=== PATIENT | male | born 1985 | race Caucasian/White ===

== ENCOUNTER 2017-04-02 20:04 | Emergency (ER) | payer OTHER ==
--- NOTE | 2017-04-02 21:11 | ED ---
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 Patient reports that 2 days ago he was exposed to some type of substance while at a crime scene. Patient reports it seemed to be like pills and he put them in a baggy. He reports that the bag absence started to his arm. He reports a one-day afterwards he started to have some red areas and. His over his left wrist. Denies any other new exposures. Patient states it seems to be somewhat. It, he put hydrocortisone on it. He reports that his occupation required him to be seen. - Related Data Home Medications Medication Instructions Recorded Confirmed Albuterol Inhaler [Ventolin Hfa 1 - 2 puff INHALATION RT-Q6H PRN 07/21/14 Inhaler] Albuterol Nebulized [Ventolin 2.5 mg INHALATION RT-Q6H PRN 04/02/17 04/02/17 Nebulized] Hydrocortisone Cream 1 applic TOPICAL TID PRN 04/02/17 04/02/17 [Hydrocortisone 1% Cream] Multivitamins, Thera [Multivitamin 1 tab PO DAILY 04/02/17 04/02/17 (formulary)] PARoxetine HCL [Paxil] 15 mg PO DAILY 04/02/17 04/02/17 Allergies Allergy/AdvReac Type Severity Reaction Status Date / Time No Known Allergies Allergy Verified 04/02/17 20:19 Review of Systems ROS Statement: Those systems with pertinent positive or pertinent negative responses have been documented in the HPI. ROS Other: All systems not noted in ROS Statement are negative. 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 Patient does appear to be in any acute distress. Limitations: no limitations General appearance: alert, in no apparent distress Head exam: Present: atraumatic, normocephalic, normal inspection Eye exam: Present: normal appearance, PERRL, EOMI. Absent: scleral icterus, conjunctival injection, periorbital swelling ENT exam: Present: normal exam, mucous membranes moist Neck exam: Present: normal inspection. Absent: tenderness, meningismus, lymphadenopathy Respiratory exam: Present: normal lung sounds bilaterally. Absent: respiratory distress, wheezes, rales, rhonchi, stridor Cardiovascular Exam: Present: regular rate, normal rhythm, normal heart sounds. Absent: systolic murmur, diastolic murmur, rubs, gallop, clicks Neurological exam: Present: alert, oriented X3, CN II-XII intact Psychiatric exam: Present: normal affect, normal mood Skin exam: Present: warm, dry, intact, normal color, erythema (Small area of erythematous papules over his left wrist. It is approximately 10 papules. No significant excoriations or swelling or drainage noted.). Absent: rash Course Vital Signs 04/02/17 04/02/17 20:08 21:15 Pulse Rate 84 75 Respiratory 20 18 Rate Blood Pressure 138/85 139/88 O2 Sat by Pulse 97 98 Oximetry Medical Decision Making - Medical Decision Making Three-way male presented emergency department with a rash on his right wrist after exposure from a substance follow work. 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 Patient reported somewhat pruritic. Patient does have multiple small papules over his wrist, no other areas of lesions. Patient lesions do not appear to be similar to scabies. This time patient will be advised to continue to use hydrocortisone cream, discuss if he gets worse or spreads that he needs come back for further evaluation. Patient was given a dressing over the wrist. Discussed wearing a watch over his wrist as well as second be causing some more irritation. Family understands treatment plan will comply. Return parameters were discussed. Disposition Clinical Impression: Rash and nonspecific skin eruption Disposition: HOME SELF-CARE Condition: Good Instructions: Acute Rash (ED), Dermatitis (ED) Additional Instructions: Ice to apply hydrocortisone and antibiotic cream. Keep the area covered. Monitor for any increased redness, swelling or drainage. Return to emergency department if any of these alarming signs symptoms occur. Referrals: Demar Combs MD [Primary Care Provider] - 1-2 days Time of Disposition: 21:11
[2017-04-02 21:16] VITALS: BP 139/88; PULSE 75; RESP 18
== END 2017-04-02 21:23 | disposition home or self-care (01) ==
LOC: EC 20:04
DX: R21 Rash and other nonspecific skin eruption (principal); F32.9 Major depressive disorder, single episode, unspecified; Z79.899 Other long term (current) drug therapy
CPT/HCPCS: 99283

== ENCOUNTER 2017-04-09 05:13 | Emergency (ER) | payer BC, OTHER ==
[2017-04-09] MEDS ORDERED: SODIUM CHLORIDE 0.9% 1,000 ML IV ONE (05:23)
--- NOTE | 2017-04-09 05:29 | ED ---
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 He felt dizzy. These have PVCs roll 4:06 AM this morning it lasted for about 20-25 minutes. He states he had a racing heart along with dizziness. Patient states he feels back to normal at this time. He does state he got out of his car and did fill better than had recurrent symptoms. He fell he did call an ambulance his blood sugar was found to be adequate blood pressure was somewhat elevated however. He has any recent illnesses fevers chills nausea vomiting sweats he did have about a week ago a reaction to his left wrist to some medication was disposing of. Family history of heart attack at that was a heavy smoker he had a heart attack in his 40s. No thyroid condition at this time the is known. No neurological conditions know early strokes. Of note patient does have a new baby at home and is paralyzed up and getting much sleep. Tonight he had coffee without much else for fluid intake - Related Data Home Medications Medication Instructions Recorded Confirmed Albuterol Inhaler [Ventolin Hfa 1 - 2 puff INHALATION RT-Q6H PRN 07/21/14 Inhaler] Albuterol Nebulized [Ventolin 2.5 mg INHALATION RT-Q6H PRN 04/02/17 04/02/17 Nebulized] Hydrocortisone Cream 1 applic TOPICAL TID PRN 04/02/17 04/02/17 [Hydrocortisone 1% Cream] Multivitamins, Thera [Multivitamin 1 tab PO DAILY 04/02/17 04/02/17 (formulary)] PARoxetine HCL [Paxil] 15 mg PO DAILY 04/02/17 04/02/17 Allergies Allergy/AdvReac Type Severity Reaction Status Date / Time No Known Allergies Allergy Verified 04/09/17 05:24 Review of Systems ROS Statement: Those systems with pertinent positive or pertinent negative responses have been documented in the HPI. ROS Other: All systems not noted in ROS Statement are negative. Past Medical History Past Medical History: Asthma History of Any Multi-Drug Resistant Organisms: None Reported Past Surgical History: No Surgical Hx Reported Additional Past Surgical History / Comment(s): wisdom teeth Past Psychological History: Anxiety, Depression Smoking Status: Never smoker Past Alcohol Use History: Occasional Past Drug Use History: None Reported General Exam - General Exam Comments Initial Comments: This is a well-developed well-nourished awake alert oriented 4 male Limitations: no limitations General appearance: alert, in no apparent distress Head exam: Present: atraumatic, normocephalic, normal inspection Eye exam: Present: normal appearance, PERRL, EOMI. Absent: scleral icterus, conjunctival injection, periorbital swelling ENT exam: Present: normal exam, mucous membranes moist Neck exam: Present: normal inspection. Absent: tenderness, meningismus, lymphadenopathy Respiratory exam: Present: normal lung sounds bilaterally. Absent: respiratory distress, wheezes, rales, rhonchi, stridor Cardiovascular Exam: Present: regular rate, normal rhythm, normal heart sounds. Absent: systolic murmur, diastolic murmur, rubs, gallop, clicks GI/Abdominal exam: Present: soft, normal bowel sounds. Absent: distended, tenderness, guarding, rebound, rigid Extremities exam: Present: normal inspection, full ROM, normal capillary refill. Absent: tenderness, pedal edema, joint swelling, calf tenderness Back exam: Present: normal inspection Neurological exam: Present: alert, oriented X3, CN II-XII intact Psychiatric exam: Present: normal affect, normal mood Skin exam: Present: warm, dry, intact, normal color. Absent: rash Course Vital Signs 04/09/17 04/09/17 05:15 06:16 Temperature 97.2 F L Pulse Rate 81 72 Respiratory 18 18 Rate Blood Pressure 170/97 151/66 O2 Sat by Pulse 98 98 Oximetry - Reevaluation(s) Reevaluation #1: 04/09/17 06:47 Patient is asymptomatic on reevaluation EKG Findings - EKG Results: EKG: interpreted by ERMDarion, WNL, sinus rhythm, normal axis, normal QRS, normal ST/ T, no acute changes (Sinus rhythm rate 74 UT interval of 144 QRS 106 QT since QTC 380/421 this is normal. EKG unchanged from that submitted by EMS.) Medical Decision Making - Medical Decision Making The patient currently asymptomatic at did discuss the findings with him and his was present. I did recommend increase oral fluids the patient will follow- up with his doctor return when necessary the presentation is consistent with a vasovagal episode. - Lab Data Result diagrams: 04/09/17 05:31 04/09/17 05:31 Lab Results 04/09/17 04/09/17 04/09/17 Range/Units 05:31 05:31 05:31 WBC 7.6 (3.8-10.6) k/uL RBC 5.43 (4.30-5.90) m/uL Hgb 15.9 (13.0-17.5) gm/dL Hct 48.4 (39.0-53.0) % MCV 89.2 (80.0-100.0) fL MCH 29.4 (25.0-35.0) pg MCHC 32.9 (31.0-37.0) g/dL RDW 13.6 (11.5-15.5) % Plt Count 230 (150-450) k/uL Neutrophils % 57 % Lymphocytes % 32 % Monocytes % 7 % Eosinophils % 3 % Basophils % 1 % Neutrophils # 4.3 (1.3-7.7) k/uL Lymphocytes # 2.4 (1.0-4.8) k/uL Monocytes # 0.5 (0-1.0) k/uL Eosinophils # 0.2 (0-0.7) k/uL Basophils # 0.1 (0-0.2) k/uL PT (9.0-12.0) sec INR (<1.2) APTT (22.0-30.0) sec Sodium (137-145) mmol/L Potassium (3.5-5.1) mmol/L Chloride (98-107) mmol/L Carbon Dioxide (22-30) mmol/L Anion Gap mmol/L BUN (9-20) mg/dL Creatinine (0.66-1.25) mg/dL Est GFR (MDRD) Af Amer (>60 ml/min/1.73 sqM) Est GFR (MDRD) Non-Af (>60 ml/min/1.73 sqM) Glucose (74-99) mg/dL POC Glucose (mg/dL) (75-99) mg/dL POC Glu Practice Nurse ID Calcium (8.4-10.2) mg/dL Magnesium (1.6-2.3) mg/dL Total Bilirubin (0.2-1.3) mg/dL AST (17-59) U/L ALT (21-72) U/L Alkaline Phosphatase (38-126) U/L Ammonia 9 (<30) umol/L Total Creatine Kinase 82 (55-170) U/L CK-MB (CK-2) 0.5 (0.0-2.4) ng/mL CK-MB (CK-2) Rel Index 0.6 Troponin I <0.012 (0.000-0.034) ng/mL Total Protein (6.3-8.2) g/dL Albumin (3.5-5.0) g/dL TSH (0.465-4.680) mIU/L Urine Color Urine Appearance (Clear) Urine pH (5.0-8.0) Ur Specific [place] (1.001-1.035) Urine Protein (Negative) Urine Glucose (UA) (Negative) Urine Ketones (Negative) Urine Blood (Negative) Urine Nitrite (Negative) Urine Bilirubin (Negative) Urine Urobilinogen (<2.0) mg/dL Ur Leukocyte Esterase (Negative) Urine Opiates Screen (NotDetected) Ur Oxycodone Screen (NotDetected) Urine Methadone Screen (NotDetected) Ur Propoxyphene Screen (NotDetected) Ur Barbiturates Screen (NotDetected) U Tricyclic Antidepress (NotDetected) Ur Phencyclidine Scrn (NotDetected) Ur Amphetamines Screen (NotDetected) U Methamphetamines Scrn (NotDetected) U Benzodiazepines Scrn (NotDetected) Urine Cocaine Screen (NotDetected) U Marijuana (THC) Screen (NotDetected) 04/09/17 04/09/17 04/09/17 Range/Units 05:31 05:31 05:38 WBC (3.8-10.6) k/uL RBC (4.30-5.90) m/uL Hgb (13.0-17.5) gm/dL Hct (39.0-53.0) % MCV (80.0-100.0) fL MCH (25.0-35.0) pg MCHC (31.0-37.0) g/dL RDW (11.5-15.5) % Plt Count (150-450) k/uL Neutrophils % % Lymphocytes % % Monocytes % % Eosinophils % % Basophils % % Neutrophils # (1.3-7.7) k/uL Lymphocytes # (1.0-4.8) k/uL Monocytes # (0-1.0) k/uL Eosinophils # (0-0.7) k/uL Basophils # (0-0.2) k/uL PT 10.4 (9.0-12.0) sec INR 1.0 (<1.2) APTT 23.0 (22.0-30.0) sec Sodium 141 (137-145) mmol/L Potassium 3.8 (3.5-5.1) mmol/L Chloride 103 (98-107) mmol/L Carbon Dioxide 26 (22-30) mmol/L Anion Gap 12 mmol/L BUN 20 (9-20) mg/dL Creatinine 0.86 (0.66-1.25) mg/dL Est GFR (MDRD) Af Amer >60 (>60 ml/min/1.73 sqM) Est GFR (MDRD) Non-Af >60 (>60 ml/min/1.73 sqM) Glucose 102 H (74-99) mg/dL POC Glucose (mg/dL) (75-99) mg/dL POC Glu Practice Nurse ID Calcium 9.1 (8.4-10.2) mg/dL Magnesium 1.8 (1.6-2.3) mg/dL Total Bilirubin 0.8 (0.2-1.3) mg/dL AST 34 (17-59) U/L ALT 60 (21-72) U/L Alkaline Phosphatase 111 (38-126) U/L Ammonia (<30) umol/L Total Creatine Kinase (55-170) U/L CK-MB (CK-2) (0.0-2.4) ng/mL CK-MB (CK-2) Rel Index Troponin I (0.000-0.034) ng/mL Total Protein 7.4 (6.3-8.2) g/dL Albumin 4.4 (3.5-5.0) g/dL TSH 4.500 (0.465-4.680) mIU/L Urine Color Yellow Urine Appearance Clear (Clear) Urine pH 6.0 (5.0-8.0) Ur Specific [place] 1.024 (1.001-1.035) Urine Protein Negative (Negative) Urine Glucose (UA) Negative (Negative) Urine Ketones Negative (Negative) Urine Blood Negative (Negative) Urine Nitrite Negative (Negative) Urine Bilirubin Negative (Negative) Urine Urobilinogen <2.0 (<2.0) mg/dL Ur Leukocyte Esterase Negative (Negative) Urine Opiates Screen Not Detected (NotDetected) Ur Oxycodone Screen Not Detected (NotDetected) Urine Methadone Screen Not Detected (NotDetected) Ur Propoxyphene Screen Not Detected (NotDetected) Ur Barbiturates Screen Not Detected (NotDetected) U Tricyclic Antidepress Not Detected (NotDetected) Ur Phencyclidine Scrn Not Detected (NotDetected) Ur Amphetamines Screen Not Detected (NotDetected) U Methamphetamines Scrn Not Detected (NotDetected) U Benzodiazepines Scrn Not Detected (NotDetected) Urine Cocaine Screen Not Detected (NotDetected) U Marijuana (THC) Screen Not Detected (NotDetected) 04/09/17 Range/Units 05:43 WBC (3.8-10.6) k/uL RBC (4.30-5.90) m/uL Hgb (13.0-17.5) gm/dL Hct (39.0-53.0) % MCV (80.0-100.0) fL MCH (25.0-35.0) pg MCHC (31.0-37.0) g/dL RDW (11.5-15.5) % Plt Count (150-450) k/uL Neutrophils % % Lymphocytes % % Monocytes % % Eosinophils % % Basophils % % Neutrophils # (1.3-7.7) k/uL Lymphocytes # (1.0-4.8) k/uL Monocytes # (0-1.0) k/uL Eosinophils # (0-0.7) k/uL Basophils # (0-0.2) k/uL PT (9.0-12.0) sec INR (<1.2) APTT (22.0-30.0) sec Sodium (137-145) mmol/L Potassium (3.5-5.1) mmol/L Chloride (98-107) mmol/L Carbon Dioxide (22-30) mmol/L Anion Gap mmol/L BUN (9-20) mg/dL Creatinine (0.66-1.25) mg/dL Est GFR (MDRD) Af Amer (>60 ml/min/1.73 sqM) Est GFR (MDRD) Non-Af (>60 ml/min/1.73 sqM) Glucose (74-99) mg/dL POC Glucose (mg/dL) 103 H (75-99) mg/dL POC Glu Practice Nurse ID Lily Griggs Calcium (8.4-10.2) mg/dL Magnesium (1.6-2.3) mg/dL Total Bilirubin (0.2-1.3) mg/dL AST (17-59) U/L ALT (21-72) U/L Alkaline Phosphatase (38-126) U/L Ammonia (<30) umol/L Total Creatine Kinase (55-170) U/L CK-MB (CK-2) (0.0-2.4) ng/mL CK-MB (CK-2) Rel Index Troponin I (0.000-0.034) ng/mL Total Protein (6.3-8.2) g/dL Albumin (3.5-5.0) g/dL TSH (0.465-4.680) mIU/L Urine Color Urine Appearance (Clear) Urine pH (5.0-8.0) Ur Specific [place] (1.001-1.035) Urine Protein (Negative) Urine Glucose (UA) (Negative) Urine Ketones (Negative) Urine Blood (Negative) Urine Nitrite (Negative) Urine Bilirubin (Negative) Urine Urobilinogen (<2.0) mg/dL Ur Leukocyte Esterase (Negative) Urine Opiates Screen (NotDetected) Ur Oxycodone Screen (NotDetected) Urine Methadone Screen (NotDetected) Ur Propoxyphene Screen (NotDetected) Ur Barbiturates Screen (NotDetected) U Tricyclic Antidepress (NotDetected) Ur Phencyclidine Scrn (NotDetected) Ur Amphetamines Screen (NotDetected) U Methamphetamines Scrn (NotDetected) U Benzodiazepines Scrn (NotDetected) Urine Cocaine Screen (NotDetected) U Marijuana (THC) Screen (NotDetected) - Radiology Data Radiology results: image reviewed (I did review the imaging no acute findings are seen in the CAT scan of the x-ray.) Disposition Clinical Impression: Vasovagal episode, Dehydration Disposition: HOME SELF-CARE Condition: Good Instructions: Near Syncope (ED), Dehydration (ED) Additional Instructions: Follow-up with her doctor for reevaluation blood pressure Referrals: Demar Combs MD [Primary Care Provider] - 1-2 days
[2017-04-09 05:46] VITALS: RESP 18
[2017-04-09 05:46] LABS: Glucose,Whole Blood 103 mg/dL (75-99)
[2017-04-09 05:48] LABS: Basophils # (A) 0.1 k/uL (0-0.2); Basophils % (A) 1 %; CH 29.8; CHCM 33.5; Eosinophils # (A) 0.2 k/uL (0-0.7); Eosinophils % (A) 3 %; HCT 48.4 % (39.0-53.0); HDW 2.33; HGB 15.9 gm/dL (13.0-17.5); Luc # (Auto) 0.14; Luc % (Auto) 2; Lymphocytes # (A) 2.4 k/uL (1.0-4.8); Lymphocytes % (A) 32 %; MCH 29.4 pg (25.0-35.0); MCHC 32.9 g/dL (31.0-37.0); MCV 89.2 fL (80.0-100.0); Monocytes # (A) 0.5 k/uL (0-1.0); Monocytes % (A) 7 %; Neutrophils # (A) 4.3 k/uL (1.3-7.7); Neutrophils % (A) 57 %; RBC 5.43 m/uL (4.30-5.90); RDW 13.6 % (11.5-15.5); WBC 7.6 k/uL (3.8-10.6); WBC (Perox) 7.75
[2017-04-09 05:57] LABS: ALT 60 U/L (21-72); AST 34 U/L (17-59); Alkaline Phosphatase 111 U/L (38-126); Anion Gap 12 mmol/L; Blood Urea Nitrogen 20 mg/dL (9-20); Calcium 9.1 mg/dL (8.4-10.2); Carbon Dioxide 26 mmol/L (22-30); Chloride 103 mmol/L (98-107); Glucose 102 mg/dL (74-99); Magnesium 1.8 mg/dL (1.6-2.3); Non-African American GFR(MDRD) >60 (>60 ml/min/1.73 sqM); Potassium 3.8 mmol/L (3.5-5.1); Prothrombin Time 10.4 sec (9.0-12.0); Sodium 141 mmol/L (137-145); Total Bilirubin 0.8 mg/dL (0.2-1.3); Total Protein 7.4 g/dL (6.3-8.2)
[2017-04-09 05:58] LABS: Appearance,Urine Clear (Clear); Bilirubin,Urine Negative (Negative); Glucose,Urine (UA) Negative (Negative); Ketones,Urine Negative (Negative); Leukocyte Esterase,Urine Negative (Negative); Nitrite,Urine Negative (Negative); Protein,Urine Negative (Negative); Specific Gravity,Urine 1.024 (1.001-1.035); UA Billing (MACRO vs. MICRO) CHEM; Urobilinogen,Urine <2.0 mg/dL (<2.0)
[2017-04-09 06:12] LABS: Creatine Kinase 82 U/L (55-170)
[2017-04-09 06:25] LABS: Creatine Kinase MB 0.5 ng/mL (0.0-2.4); Troponin I <0.012 ng/mL (0.000-0.034)
--- NOTE | 2017-04-09 06:58 | CT ---
EXAM: CT Head Without Intravenous Contrast CLINICAL HISTORY: Reason: altered mental status TECHNIQUE: Axial computed tomography images of the head/brain without intravenous contrast. CTDI is 60.30 mGy and DLP is 1036.00 mGy-cm. This CT exam was performed using one or more of the following dose reduction techniques: automated exposure control, adjustment of the mA and/or kV according to patient size, and/or use of iterative reconstruction technique. COMPARISON: No relevant prior studies available. FINDINGS: Brain: Unremarkable. No hemorrhage. No significant white matter disease. No edema. Ventricles: Unremarkable. No ventriculomegaly. Bones/joints: Unremarkable. No acute fracture. Soft tissues: Unremarkable. Sinuses: Minimal paranasal sinus mucosal thickening. No fluid levels. Mastoid air cells: Unremarkable as visualized. No mastoid effusion. IMPRESSION: No acute findings.
--- NOTE | 2017-04-09 06:59 | XR ---
EXAM: XR Chest, 2 Views CLINICAL HISTORY: Reason: altered mental status TECHNIQUE: Frontal and lateral views of the chest. COMPARISON: No relevant prior studies available. FINDINGS: Lungs: Unremarkable. No consolidation. Pleural space: Unremarkable. No pneumothorax. Heart: Unremarkable. No cardiomegaly. Mediastinum: Unremarkable. Bones/joints: Unremarkable. IMPRESSION: No evidence of acute cardiopulmonary disease.
[2017-04-09 07:04] VITALS: BP 137/76; PULSE 60; TEMP 97.5
== END 2017-04-09 07:02 | disposition home or self-care (01) ==
LOC: EC 05:13
DX: R55 Syncope and collapse (principal); E86.0 Dehydration; F32.9 Major depressive disorder, single episode, unspecified; F41.9 Anxiety disorder, unspecified; Z79.899 Other long term (current) drug therapy
CPT/HCPCS: 36415; 70450; 71020; 80053; 80306; 81003; 82140; 82550; 82553; 83735; 84443; 84484; 85025; 85610; 85730; 93005; 96360; 99285

== ENCOUNTER → 2018-07-10 | Outpatient (CLI) | payer OTHER ==
--- NOTE | 2018-07-10 12:30 | XR ---
EXAMINATION TYPE: XR Hip LT and AP Pelvis DATE OF EXAM: 07/10/2018 CLINICAL HISTORY: Pelvic and left hip pain. TECHNIQUE: A single AP view of the pelvis is obtained. Two views of the left hip are obtained. COMPARISON: None. FINDINGS: There is no acute fracture/dislocation evident in the pelvis. No evidence for fracture of the left hi p. Joint spaces well-preserved.. IMPRESSION: There is no acute fracture or dislocation in the pelvis or left hip.
== END | disposition home or self-care (01) ==
LOC: RADXRMAIN 11:40
PROVIDERS: ATTEND Emergency Medicine
DX: S73.102A Unspecified sprain of left hip, initial encounter (principal)
CPT/HCPCS: 73502

== ENCOUNTER 2018-09-29 09:51 | Emergency (ER) | payer OTHER ==
[2018-09-29] MEDS ORDERED: DIPH,PERTUS(ACELL)TETVAC-LF 0.5 ML VIAL IM ONE (10:01)
[2018-09-29] MEDS ORDERED: TOPICAL SKIN ADHESIVE 1 EACH AMP TOPICAL ONE (10:01)
[2018-09-29 10:15] VITALS: BP 158/94; PULSE 70; RESP 18; TEMP 99.2
--- NOTE | 2018-09-29 10:20 | ED ---
Wound/Laceration HPI - General Chief Complaint: Wound/Laceration Stated Complaint: Laceration Time Seen by Provider: 09/29/18 09:56 Source: patient Mode of arrival: ambulatory Limitations: no limitations - History of Present Illness Initial Comments: 33-year-old male presents today for chief complaint of right arm laceration. Patient states he was cut with glass after responding to a call at work. Patient is unsure of last tetanus. Patient is unsure if it needed repair area covered upon arrival. Remaining review of systems negative, pt denies fall other lacerations, head or neck injury, extremity injury, fever, chills, shortness of breath, chest pain, back pain, abdominal pain, nausea or vomiting, numbness or tingling, dysuria or hematuria, constipation or diarrhea, headaches or visual changes, or any other complaints. Upon arrival pt ambulatory appearing well. - Related Data Home Medications Medication Instructions Recorded Confirmed Albuterol Inhaler [Ventolin Hfa 1 - 2 puff INHALATION RT-Q6H PRN 07/21/14 04/02/17 Inhaler] Albuterol Nebulized [Ventolin 2.5 mg INHALATION RT-Q6H PRN 04/02/17 04/02/17 Nebulized] Hydrocortisone Cream 1 applic TOPICAL TID PRN 04/02/17 04/02/17 [Hydrocortisone 1% Cream] Multivitamins, Thera [Multivitamin 1 tab PO DAILY 04/02/17 04/02/17 (formulary)] PARoxetine HCL [Paxil] 15 mg PO DAILY 04/02/17 04/02/17 Allergies Allergy/AdvReac Type Severity Reaction Status Date / Time No Known Allergies Allergy Verified 09/29/18 10:11 Review of Systems ROS Statement: Those systems with pertinent positive or pertinent negative responses have been documented in the HPI. ROS Other: All systems not noted in ROS Statement are negative. Past Medical History Past Medical History: Asthma History of Any Multi-Drug Resistant Organisms: None Reported Past Surgical History: No Surgical Hx Reported Additional Past Surgical History / Comment(s): wisdom teeth Past Psychological History: Anxiety, Depression Smoking Status: Never smoker Past Alcohol Use History: Occasional Past Drug Use History: None Reported General Exam - General Exam Comments Initial Comments: General: The patient is awake and alert, in no distress, and does not appear acutely ill. Eye: +3 mm pupils are equal, round and reactive to light, extra-ocular movements are intact. No nystagmus. There is normal conjunctiva bilaterally. No signs of icterus. Ears, nose, mouth and throat: There are moist mucous membranes and no oral lesions. Neck: The neck is supple, there is no tenderness or JVD. Cardiovascular: There is a regular rate and rhythm. No murmur, rub or gallop is appreciated. Respiratory: Lungs are clear to auscultation, respirations are non-labored, breath sounds are equal. No wheezes, stridor, rales, or rhonchi. Musculoskeletal: Normal ROM, no tenderness. Strength 5/5. Sensation intact. Pulses equal bilaterally 2+. Neurological: A&O x 3. CN II-XII intact, There are no obvious motor or sensory deficits. Coordination appears grossly intact. Speech is normal. Skin: Skin is warm and dry and no rashes or lesions are noted. 3.5 cm superficial laceration of the right bicep anteriorly. Psychiatric: Cooperative, appropriate mood & affect, normal judgment. Limitations: no limitations Course Vital Signs 09/29/18 10:11 Temperature 99.2 F Pulse Rate 70 Respiratory 18 Rate Blood Pressure 158/94 O2 Sat by Pulse 98 Oximetry Medical Decision Making - Medical Decision Making 33-year-old male presenting today for chief complaint of right arm laceration. Appears superficial no evidence of deeper underlying injury no puncture or foreign body. Area was cleansed extensively topical adhesive was used to approximate wound edges. Sterile bandage applied. Patient tetanus updated. No other area of injury patient was discharged appearing well with her permission was discussed with patient prior to discharge. Discussed case with attending provider Dr. Sim prior to discharge Disposition Clinical Impression: Superficial laceration Disposition: HOME SELF-CARE Condition: Good Instructions (If sedation given, give patient instructions): Laceration (ED), Skin Adhesive Care (ED) Additional Instructions: Please use medication as discussed. Please follow-up with family doctor in the next 2 days. Please return to emergency room if the symptoms increase or worsen or for any other concerns. Is patient prescribed a controlled substance at d/c from ED?: No Referrals: Demar Combs MD [Primary Care Provider] - 1-2 days Time of Disposition: 10:20
== END 2018-09-29 10:24 | disposition home or self-care (01) ==
LOC: EC 09:51
DX: S46.221A Laceration of muscle, fascia and tendon of other parts of biceps, right arm, initial encounter (principal); J45.909 Unspecified asthma, uncomplicated; F41.9 Anxiety disorder, unspecified; F32.9 Major depressive disorder, single episode, unspecified; Z23 Encounter for immunization; Z79.899 Other long term (current) drug therapy; W25.XXXA Contact with sharp glass, initial encounter; Y92.69 Other specified industrial and construction area as the place of occurrence of the external cause; Y99.0 Civilian activity done for income or pay
CPT/HCPCS: 12002; 90471; 90715; 99282

== ENCOUNTER 2019-05-21 01:11 | Emergency (ER) | payer OTHER ==
[2019-05-21 01:17] VITALS: RESP 18; TEMP 99
[2019-05-21 01:29] VITALS: PULSE 112
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
[2019-05-21 01:40] VITALS: BP 160/107
== END 2019-05-21 01:52 | disposition home or self-care (01) ==
LOC: EC 01:11
DX: S00.01XA Abrasion of scalp, initial encounter (principal); I10 Essential (primary) hypertension; J45.909 Unspecified asthma, uncomplicated; F41.9 Anxiety disorder, unspecified; F32.9 Major depressive disorder, single episode, unspecified; Z79.899 Other long term (current) drug therapy; Y04.0XXA Assault by unarmed brawl or fight, initial encounter
CPT/HCPCS: 99284

== ENCOUNTER 2019-08-08 19:27 | Emergency (ER) | payer BC, OTHER ==
--- NOTE | 2019-08-08 19:36 | ED ---
Fever HPI - General Chief Complaint: Nausea/Vomiting/Diarrhea Stated Complaint: nausea Time Seen by Provider: 08/08/19 19:28 - History of Present Illness Initial Comments: Patient is a 34-year-old male presenting to emergency Department with complaints of intermittent fevers, nausea for the past 2-3 days. He is currently working and he states that his boss told him that he get checked for influenza. He denies cough, chest pain, shortness of breath. He denies vomiting, abdominal pain. He has no other complaints at this time. Upon arrival to the ER his vital signs are stable. - Related Data Home Medications Medication Instructions Recorded Confirmed Albuterol Inhaler [Ventolin Hfa 1 - 2 puff INHALATION RT-Q6H PRN 07/21/14 04/02/17 Inhaler] Albuterol Nebulized [Ventolin 2.5 mg INHALATION RT-Q6H PRN 04/02/17 04/02/17 Nebulized] Hydrocortisone Cream 1 applic TOPICAL TID PRN 04/02/17 04/02/17 [Hydrocortisone 1% Cream] Multivitamins, Thera [Multivitamin 1 tab PO DAILY 04/02/17 04/02/17 (formulary)] PARoxetine HCL [Paxil] 15 mg PO DAILY 04/02/17 04/02/17 Allergies Allergy/AdvReac Type Severity Reaction Status Date / Time No Known Allergies Allergy Verified 05/21/19 01:12 Review of Systems ROS Statement: Those systems with pertinent positive or pertinent negative responses have been documented in the HPI. ROS Other: All systems not noted in ROS Statement are negative. Past Medical History Past Medical History: Asthma, Hypertension History of Any Multi-Drug Resistant Organisms: None Reported Past Surgical History: No Surgical Hx Reported Additional Past Surgical History / Comment(s): wisdom teeth, Past Psychological History: Anxiety, Depression Smoking Status: Never smoker Past Alcohol Use History: Occasional Past Drug Use History: None Reported General Exam - General Exam Comments Initial Comments: GENERAL: Well-appearing, well-nourished and in no acute distress. HEAD: Atraumatic, normocephalic. EYES: Pupils equal round and reactive to light, extraocular movements intact, sclera anicteric, conjunctiva are normal. ENT: Nares patent, oropharynx clear without exudates. Moist mucous membranes. NECK: Normal range of motion, supple without lymphadenopathy or JVD. LUNGS: Breath sounds clear to auscultation bilaterally and equal. No wheezes rales or rhonchi. HEART: Regular rate and rhythm without murmurs, rubs or gallops. ABDOMEN: Soft, nontender, normoactive bowel sounds. No guarding, no rebound. No masses appreciated. : Deferred EXTREMITIES: Normal range of motion, no pitting or edema. No clubbing or cyanosis. SKIN: Warm, Dry, normal turgor, no rashes or lesions noted. Course Vital Signs 08/08/19 19:38 Temperature 98.6 F Pulse Rate 94 Respiratory 16 Rate Blood Pressure 141/90 O2 Sat by Pulse 97 Oximetry Medical Decision Making - Medical Decision Making Patient is a 34-year-old male presenting with intermittent fevers, nausea for the past 2-3 days. His boss wanted him to be checked for influenza. Exam is unremarkable. Influenza test is negative. I discussed this with the patient. He is stable for discharge. - Lab Data Lab Results 08/08/19 Range/Units 19:30 Influenza Type A RNA Not Detected (Not Detectd) Influenza Type B (PCR) Not Detected (Not Detectd) Disposition Clinical Impression: Influenza, Nausea Disposition: HOME SELF-CARE Condition: Stable Instructions (If sedation given, give patient instructions): Influenza (ED), Acute Nausea and Vomiting (ED) Additional Instructions: Please return to the Emergency Department if symptoms worsen or any other concerns. Is patient prescribed a controlled substance at d/c from ED?: No Referrals: Demar Combs MD [Primary Care Provider] - 1-2 days
[2019-08-08 19:41] VITALS: BP 141/90; PULSE 94; RESP 16; TEMP 98.6
== END 2019-08-08 20:00 | disposition home or self-care (01) ==
LOC: EC 19:27
DX: J11.1 Influenza due to unidentified influenza virus with other respiratory manifestations (principal); F41.9 Anxiety disorder, unspecified; F32.9 Major depressive disorder, single episode, unspecified; J45.909 Unspecified asthma, uncomplicated; I10 Essential (primary) hypertension; Z79.51 Long term (current) use of inhaled steroids; Z79.899 Other long term (current) drug therapy
CPT/HCPCS: 87502; 99283

== ENCOUNTER → 2019-12-31 | Outpatient (CLI) | payer BC | END | disposition home or self-care (01) | LOC: LABWHC1 11:41 | PROVIDERS: ATTEND Family Medicine | DX: Z20.828 Contact with and (suspected) exposure to other viral communicable diseases (principal) | CPT/HCPCS: U0003; C9803 ==

== ENCOUNTER → 2023-04-24 | Outpatient (CLI) | payer OTHER ==
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
== END | disposition home or self-care (01) ==
LOC: RADXRMAIN 11:05
PROVIDERS: ATTEND Emergency Medicine
DX: S93.601A Unspecified sprain of right foot, initial encounter (principal)

== ENCOUNTER → 2023-05-01 | Outpatient (CLI) | payer OTHER ==
--- NOTE | 2023-05-03 20:43 | MR ---
EXAMINATION TYPE: MR foot RT wo con DATE OF EXAM: 05/01/2023 COMPARISON: Right foot radiograph 04/24/2016 HISTORY: Right forefoot pain, injury 1 week ago. Multiplanar, multisequence images of the right were acquired without contrast. FINDINGS: BONES/CARTILAGE/JOINT: Low T1 and high T2 signal within the fibular sesamoid. Joint space narrowing and tiny osteophytes at the first metatarsophalangeal joint. No joint effusion. LIGAMENTS: Spring ligament is normal. Lisfranc ligament normal. Normal plantar plates. TENDONS: Flexor tendons are normal. Extensor tendons are normal. SOFT TISSUES: Small adventitial bursa first webspace.. Sinus tarsi is normal. Plantar fascia is normal. Neurovascular structures are normal. IMPRESSION: 1. Sesamoiditis. 2. Mild degenerative changes first MTP joint. 3. Small adventitial bursa first webspace.
== END | disposition home or self-care (01) ==
LOC: RADMRIMAIN 17:56
PROVIDERS: ATTEND Emergency Medicine
DX: S93.601D Unspecified sprain of right foot, subsequent encounter (principal); M19.071 Primary osteoarthritis, right ankle and foot; M25.871 Other specified joint disorders, right ankle and foot

== ENCOUNTER 2024-06-04 04:31 | Inpatient (IN) | payer BC, OTHER ==
[2024-06-04] MEDS ORDERED: HEPARIN SODIUM 1,000 UN/ML (10ML VL) IV PRN (04:53)
[2024-06-04] MEDS: MORPHINE SULFATE 4 MG/ML SYRINGE IVP STA (05:00)
[2024-06-04] MEDS: HEPARIN SODIUM 1,000 UN/ML (10ML VL) IV ONE (05:02)
[2024-06-04] MEDS: ATORVASTATIN 80 MG TAB PO STA (05:03)
[2024-06-04] MEDS: ASPIRIN 81 MG PO STA (05:04)
[2024-06-04 05:08] LABS: Basophils # (A) 0.1 k/uL (0-0.2); Basophils % (A) 1 %; Eosinophils # (A) 0.2 k/uL (0-0.7); Eosinophils % (A) 3 %; HCT 45.8 % (39.0-53.0); HGB 15.5 gm/dL (13.0-17.5); Lymphocytes # (A) 1.5 k/uL (1.0-4.8); Lymphocytes % (A) 20 %; MCH 30.4 pg (25.0-35.0); MCHC 33.9 g/dL (31.0-37.0); MCV 89.8 fL (80.0-100.0); Mean Platelet Volume 7.2; Monocytes # (A) 0.8 k/uL (0-1.0); Monocytes % (A) 11 %; Neutrophils # (A) 4.6 k/uL (1.3-7.7); Neutrophils % (A) 63 %; Platelet Count 188 k/uL (150-450); RDW 12.3 % (11.5-15.5); WBC 7.4 k/uL (3.8-10.6)
[2024-06-04] MEDS: NITROGLYCERIN SL TABS 0.4 MG TAB SUBLINGUAL PRN (05:08)
[2024-06-04 05:16] LABS: ALT 26 U/L (4-49); AST 40 U/L (17-59); African American GFR (CKD) >90 (>60 ml/min/1.73 sqM); Alkaline Phosphatase 101 U/L (38-126); Anion Gap 6 mmol/L; Blood Urea Nitrogen 15 mg/dL (9-20); Calcium 8.6 mg/dL (8.4-10.2); Carbon Dioxide 26 mmol/L (22-30); Chloride 105 mmol/L (98-107); Glucose 118 mg/dL (74-99); Non-African American GFR(CKD) >90 (>60 ml/min/1.73 sqM); Potassium 4.1 mmol/L (3.5-5.1); Sodium 137 mmol/L (137-145); Total Bilirubin 0.9 mg/dL (0.2-1.3); Total Protein 6.8 g/dL (6.3-8.2)
[2024-06-04] MEDS: NITROGLYCERIN OINT 1 INCH/GM PACKET TOPICAL STA (05:16)
[2024-06-04] MEDS: HEPARIN SOD,PORK IN 0.45% NACL 25,000 UNIT in 0.45% NACL 1 250ML.BAG IV SCH (05:20)
--- NOTE | 2024-06-04 05:23 | XR ---
EXAM: XR Chest, 1 View CLINICAL HISTORY: ITS.REASON XR Reason: chest pain TECHNIQUE: Frontal view of the chest. COMPARISON: X-ray dated 04/09/2017 FINDINGS: Lungs: Confluent airspace opacities seen within the right midlung. Confluent airspace opacity is seen within the lateral left lower lobe. Pleural space: Unremarkable. No pneumothorax. Heart: Unremarkable. No cardiomegaly. Mediastinum: Unremarkable. Normal mediastinal contour. Bones/joints: Unremarkable. No acute fracture. IMPRESSION: Bilateral pneumonia.
[2024-06-04 05:24] LABS: NT-Pro-B-Type Natriuretic Pept 332 pg/mL
--- NOTE | 2024-06-04 05:26 | ED ---
Chest Pain HPI - General Chief Complaint: Chest Pain Stated Complaint: Chest pain Time Seen by Provider: 06/04/24 04:47 Source: patient Mode of arrival: ambulatory Limitations: no limitations - History of Present Illness Initial Comments: Is a 39-year-old male with history of coronary artery disease that was diagnosed 3 to 4 years ago on a coronary CT scan that was done due to his family history his father's first PA was at the age of 39. Patient takes a statin daily but is not on aspirin. Patient presents ER today via private vehicle for evaluation of chest pain. Patient reports that yesterday around 5 PM he began having some chest pain, he took some Motrin and had some temporary improvement. Patient tried to go to bed last night he states he toss and turn feeling somewhat uncomfortable, tried laying on the left side did not feel any better. Patient states that about an hour prior to coming to the hospital the pain suddenly worsened and was radiating to his back and his left shoulder. Patient was diaphoretic but did not have any nausea or vomiting. Patient's decided to bring him to the ER for further evaluation. 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 - Related Data Home Medications Medication Instructions Recorded Confirmed Albuterol Inhaler [Ventolin Hfa 1 - 2 puff INHALATION RT-Q6H PRN 07/21/14 04/02/17 Inhaler] Albuterol Nebulized [Ventolin 2.5 mg INHALATION RT-Q6H PRN 04/02/17 04/02/17 Nebulized] Hydrocortisone Cream 1 applic TOPICAL TID PRN 04/02/17 04/02/17 [Hydrocortisone 1% Cream] Multivitamins, Thera [Multivitamin 1 tab PO DAILY 04/02/17 04/02/17 (formulary)] PARoxetine HCL [Paxil] 15 mg PO DAILY 04/02/17 04/02/17 Allergies Allergy/AdvReac Type Severity Reaction Status Date / Time No Known Allergies Allergy Verified 06/04/24 04:36 Review of Systems ROS Statement: Those systems with pertinent positive or pertinent negative responses have been documented in the HPI. ROS Other: All systems not noted in ROS Statement are negative. EKG Findings - EKG Comments: EKG Findings:: EKG interpreted by me, initial EKG obtained at 4:43 AM, rate is 65 rhythm is sinus normal axis, normal intervals, NJ 134, QRS 98, QTc [address] elevations in lead I, II, III, aVF with ST depression in aVR V1 and V2, there are significant respiratory movement artifact in the lateral leads but this is concerning for an inferior inferior lateral PA. Repeat EKG obtained due to the motion artifact on the first, repeat EKG obtained at 4:46 AM rate is 63 rhythm is again sinus normal axis, normal intervals, NJ 129 QRS 103 QTc [address] elevations more prominent in 2 3 and aVF but elevations are noted in 1 V5 and V6 with depressions in aVR V1 V2 and V3. This again is concerning for an acute inferior lateral PA Past Medical History Past Medical History: Asthma, Hypertension History of Any Multi-Drug Resistant Organisms: None Reported Past Surgical History: No Surgical Hx Reported Additional Past Surgical History / Comment(s): wisdom teeth, Past Psychological History: Anxiety, Depression Past Alcohol Use History: Occasional Past Drug Use History: None Reported General Exam - General Exam Comments Initial Comments: Physical Exam GENERAL: Diaphoretic, appears uncomfortable HENT: Normocephalic, Atraumatic. EYES: PERRL, EOMI PULMONARY: Unlabored respirations. No audible rales rhonchi or wheezing was noted. CARDIOVASCULAR: There is a regular rate and rhythm Normal radial and pedal pulses ABDOMEN: Soft and nontender SKIN: Diaphoretic, flushed : Deferred NEUROLOGIC: Patient is alert and oriented x3. Moving all extremities spontaneously MUSCULOSKELETAL: Normal extremities with adequate strength and full range of motion. No lower extremity swelling or edema. No calf tenderness. PSYCHIATRIC: Normal psychiatric evaluation. Limitations: no limitations Course Vital Signs 06/04/24 06/04/24 06/04/24 04:32 04:50 05:12 Temperature 97.8 F Pulse Rate 69 101 H 98 Respiratory 20 18 18 Rate Blood Pressure 146/87 144/97 144/91 O2 Sat by Pulse 100 97 97 Oximetry 06/04/24 05:30 Temperature Pulse Rate 93 Respiratory 18 Rate Blood Pressure 132/75 O2 Sat by Pulse 97 Oximetry Chest Pain MDM - MDM Was pt. sent in by a medical professional or institution (, PA, GENERAL COUNSEL, urgent care, hospital, or senior care...) When possible be specific @ -No Did you speak to anyone other than the patient for history (EMS, parent, family, police, friend...)? What history was obtained from this source @ -No Did you review nursing and triage notes (agree or disagree)? Why? @ -I reviewed and agree with nursing and triage notes Were old charts reviewed (outside hosp., previous admission, EMS record, old EKG, old radiological studies, urgent care reports/EKG's, senior care records)? Report findings @ -No old charts were reviewed Differential Diagnosis (chest pain, altered mental status, abdominal pain women, abdominal pain men, vaginal bleeding, weakness, fever, dyspnea, syncope, headache, dizziness, GI bleed, back pain, seizure, CVA, palpatations, mental health)? @ -Differential Chest Pain: Stable Angina, Unstable Angina, STEMI, NSTEMI Aortic Dissection, Pneumothorax, Musculoskeletal, Esophageal Spasm GERD, Cholecystitis, Pancreatitis, Zoster, this is not meant to be an all-inclusive list. EKG interpreted by me (3pts min.). @ -As above X-rays interpreted by me (1pt min.). @ -No widened mediastinum no focal consolidations no pneumothorax CT interpreted by me (1pt min.). @ -None done U/S interpreted by me (1pt. min.). @ -None done What testing was considered but not performed or refused? (CT, X-rays, U/S, labs)? Why? @ -None What meds were considered but not given or refused? Why? @ -None Did you discuss the management of the patient with other professionals (professionals i.e. DrToo, PA, GENERAL COUNSEL, lab, RT, psych nurse, geriatric social work professor, stull installer, teacher, chief credit officer, nurse case management)? Give summary @ -Discussed with chief chemist Dr. Lucas Was smoking cessation discussed for >3mins.? @ -No Was critical care preformed (if so, how long)? @ -Yes, 30 minutes Were there social determinants of health that impacted care today? How? (Homelessness, low income, unemployed, alcoholism, drug addiction, transportation, low edu. Level, literacy, decrease access to med. care, long term, rehab)? @ -No Was there de-escalation of care discussed even if they declined (Discuss DNR or withdrawal of care, Hospice)? DNR status @ -No What co-morbidities impacted this encounter? (DM, HTN, Smoking, COPD, CAD, Cancer, CVA, ARF, Chemo, Hep., AIDS, mental health diagnosis, sleep apnea, morbid obesity)? @ -CAD Was patient admitted / discharged? Hospital course, mention meds given and route, prescriptions, significant lab abnormalities, going to OR and other pertinent info. @ -Admit The patient was seen and evaluated, history is obtained from the patient and at bedside. Patient with known history of CAD presenting with chest pain began around 5 PM was mild throughout the night but suddenly worsened about 1 hour prior to arrival. Upon arrival patient was diaphoretic with crushing retrosternal chest pain radiating to the back of the shoulder. EKG was concerning for an inferior wall or inferior lateral PA. There was diffuse ST elevation with some T wave inversions in depressions. STEMI was activated patient received aspirin, morphine, Undiagnosed new problem with uncertain prognosis? @ -No Drug Therapy requiring intensive monitoring for toxicity (Heparin, Nitro, Insulin, Cardizem)? @ -No Were any procedures done? @ -No Diagnosis/symptom? @ -STEMI, myopericarditis Acute, or Chronic, or Acute on Chronic? @ -Acute Uncomplicated (without systemic symptoms) or Complicated (systemic symptoms)? @ -Default Side effects of treatment? @ -No Exacerbation, Progression, or Severe Exacerbation? @ -No Poses a threat to life or bodily function? How? (Chest pain, USA, PA, pneumonia, PE, COPD, DKA, ARF, appy, cholecystitis, CVA, Diverticulitis, Homicidal, Suicidal, threat to staff... and all critical care pts) @ -Potentially Disposition Clinical Impression: Acute myopericarditis, ST elevation myocardial infarction (STEMI) Disposition: ADMITTED IP TO THIS HOSP Condition: Serious Is patient prescribed a controlled substance at d/c from ED?: No
[2024-06-04] MEDS: METOPROLOL SUCCINATE (ER) 25 MG TAB.ER.24H PO STA ×2 (05:28)
--- NOTE | 2024-06-04 05:47 | P.CRDCN ---
History of Present Illness History of present illness: This is Dr. Corcoran dictating a consult on this patient The patient was interviewed and examined IMPRESSION / ASSESSMENT: Acute myocardial injury with ST elevation about 1.5 to 2 mm in the inferior leads extending into the high lateral leads and a subtle ST elevation in V4 thr ough V6 with ST depressions in V1 V2 consistent with inferior posterior lateral AR. First troponin is 3.[address] abnormality are diffuse there is no GA depression Abnormal calcium score 3 to 4 years back, treated with rosuvastatin by his PCP Hypertension, on metoprolol Strong family history of premature CAD in his father who had bypass surgery before the age of 40 PLAN: Proceed with coronary angiography urgently for likely inferior posterior lateral AR, acute Atorvastatin IV heparin aspirin morphine Nitropaste and metoprolol tartrate 25 [address] with Dr. Мария LAURA Yesterday evening the patient started experiencing left scapular pain on the inside of the scapula which would not go away. He then started experiencing axillary left pain and woke up around 3:00 in the morning with severe anterior midsternal chest discomfort which was quite severe and came to the ER. I was called by Dr. Hoang the ER physician for inferior wall ST elevation AR. Upon interviewing the patient, he has had a viral bronchitis last week and was treated with steroids. The discomfort started last night and then became worse at 3 AM in the morning. He is still in some pain but mostly in the left s capular region and he pointed to the medial border of the left scapula. He has received morphine nitroglycerin aspirin IV heparin and 80 mg of atorvastatin The twelve-lead EKG shows sinus rhythm heart rate 65 beats a minute and ST elevation that is fairly diffuse. ST elevations are present in the inferior leads of about 1.5 to 2 mm as well as in lead I and a subtle ST elevation in aVL. There is [address] depression with T wave inversion in V1 and V2 with subtle ST elevation in V4 through V6 While this is consistent with inferior posterior lateral injury, the concavity of the ST elevation is maintained, the ST elevations are fairly diffuse but there is no GA depression. Lead AVR looks normal ROS: No fever chills or rigors, but last week he had a viral bronchitis and was treated with steroids no cough, phlegm or expectoration, no nausea, vomiting or diarrhea, no hematuria, dysuria, no musculoskeletal complaints, no strokes or seizures, no skin lesions. EXAMINATION: Pulse rate 98 beats a minute. Initially to 69 beats a minute, afebrile Blood pressure 144/87 mmHg pulse ox normal No JVD Normal heart sounds no pericardial rub, no murmurs Lungs are clear no rhonchi no crackles Abdomen soft No lower extremity edema REVIEW OF LABS, ECG & MEDICAL DATA Troponin 3.0 Sodium 137 potassium 4.1 Past Medical History Past Medical History: Asthma, Hypertension History of Any Multi-Drug Resistant Organisms: None Reported Past Surgical History: No Surgical Hx Reported Additional Past Surgical History / Comment(s): wisdom teeth, Past Psychological History: Anxiety, Depression Past Alcohol Use History: Occasional Past Drug Use History: None Reported Medications and Allergies Home Medications Medication Instructions Recorded Confirmed Type RX: Albuterol Inhaler [Ventolin 1 - 2 puff INHALATION RT-Q6H PRN 07/21/14 04/02/17 History Hfa Inhaler] Albuterol Nebulized [Ventolin 2.5 mg INHALATION RT-Q6H PRN 04/02/17 04/02/17 History Nebulized] Hydrocortisone Cream 1 applic TOPICAL TID PRN 04/02/17 04/02/17 History [Hydrocortisone 1% Cream] Multivitamins, Thera [Multivitamin 1 tab PO DAILY 04/02/17 04/02/17 History (formulary)] PARoxetine HCL [Paxil] 15 mg PO DAILY 04/02/17 04/02/17 History Allergies Allergy/AdvReac Type Severity Reaction Status Date / Time No Known Allergies Allergy Verified 06/04/24 04:36 Physical Exam Vitals: Vital Signs Temp Pulse Resp BP Pulse Ox 06/04/24 05:12 98 18 144/91 97 06/04/24 04:50 101 H 18 144/97 97 06/04/24 04:32 97.8 F 69 20 146/87 100 Intake and Output 06/03/24 06/03/24 06/04/24 14:59 22:59 06:59 Other: Weight 136.078 kg Results 06/04/24 04:57 Cardiac Enzymes 06/04/24 06/04/24 Range/Units 04:57 04:57 AST 40 (17-59) U/L Troponin I 3.010 H* (0.000-0.034) ng/mL Comprehensive Metabolic Panel 06/04/24 Range/Units 04:57 Sodium 137 (137-145) mmol/L Potassium 4.1 (3.5-5.1) mmol/L Chloride 105 (98-107) mmol/L Carbon Dioxide 26 (22-30) mmol/L BUN 15 (9-20) mg/dL Creatinine 0.72 (0.66-1.25) mg/dL Glucose 118 H (74-99) mg/dL Calcium 8.6 (8.4-10.2) mg/dL AST 40 (17-59) U/L ALT 26 (4-49) U/L Alkaline Phosphatase 101 (38-126) U/L Total Protein 6.8 (6.3-8.2) g/dL Albumin 4.0 (3.5-5.0) g/dL Current Medications Generic Name Dose Route Start Last Admin Trade Name Freq PRN Reason Stop Dose Admin Heparin Sodium (Porcine) 0 unit 06/04/24 04:53 Heparin Sodium 1,000 Un/Ml (10ml Vl) IV PER PROTOCOL PRN Low PTT Protocol Heparin Sodium/Sodium Chloride 250 mls @ 10.002 mls/hr 06/04/24 05:00 06/04/24 05:20 25,000 unit/ Sodium Chloride IV 7.35 units/kg/hr .Q24H PETE 10.002 mls/hr Administration Protocol 7.35 UNITS/KG/HR Nitroglycerin 0.4 mg 06/04/24 04:52 06/04/24 05:08 Nitroglycerin Sl Tabs 0.4 Mg Tab SUBLINGUAL 0.4 mg Q5M PRN Administration Chest Pain Intake and Output 06/03/24 06/03/24 06/04/24 14:59 22:59 06:59 Other: Weight 136.078 kg Patient Weight 06/04/24 06:59 Weight 136.078 kg 06/04/24 04:57
[2024-06-04] MEDS: LIDOCAINE 1% INJ 10MG/ML (20 ML MDV) SQ ONE (05:51)
[2024-06-04] MEDS: MIDAZOLAM 2 MG/2 ML VIAL IVP ONE (05:52)
[2024-06-04] MEDS ORDERED: NALOXONE 0.4 MG/ML 1 ML VIAL IV PRN (05:52)
[2024-06-04] MEDS: VERAPAMIL SYRINGE (5 MG/10 ML) INTRAARTER ONE (05:52)
[2024-06-04] MEDS: HEPARIN SODIUM 1,000 UN/ML (10ML VL) IVP ONE (05:55)
[2024-06-04] MEDS: SODIUM CHLORIDE 0.9% 1,000 ML IV ONE (05:59)
[2024-06-04] MEDS: HEPARIN SODIUM,PORCINE 10,000 UNIT in SODIUM CHLORIDE 0.9% 1,000 ML IRRIGATION ONE (06:02)
[2024-06-04] MEDS: HEPARIN SODIUM,PORCINE (1 ML) 2,500 UNIT in SODIUM CHLORIDE 0.9% 250 ML IRRIGATION ONE (06:02)
[2024-06-04] MEDS ORDERED: RX INFO: IV CONTRAST WAS GIVEN 1 EACH MISC MISCELLANE PRN (06:05)
--- NOTE | 2024-06-04 06:07 | P.PCN ---
Date of Procedure: 06/04/24 Operative Findings: CARDIAC CATHETERIZATION PERFORMING PHYSICIAN: Benigno Hsieh MD, RPVI PROCEDURE PERFORMED: 1. Selective right and left coronary angiogram 2. Left heart catheterization 3. Ultrasound-guided access of the right radial artery INDICATION: Chest discomfort and concerning EKG changes for severe underlying coronary artery disease COMPLICATION: None APPROACH: Right radial artery LEVEL OF SEDATION: Moderate with a sedation length of 9 minutes PROCEDURE DESCRIPTION: After obtaining an informed consent, the patient was brought to cardiac label rewinder. Local anesthesia was performed using lidocaine subcutaneously. The right radial artery was cannulated using Seldinger technique, the guidewire passed easily, following that we advanced a 5-[place] sheath dilator assembly, the wire and dilator were removed and sheath was flushed. Following that, 2 mg of verapamil along with 5000 unit heparin were given. Selective right and left coronary angiogram using a 6-[place] JR4 and JL 3.5 catheters. Following that we did left heart catheterization using 6-[place] pigtail catheter. The procedure was completed there was no complication. SELECTIVE CORONARY ANGIOGRAM: The right coronary artery: Large-caliber vessel and a dominant vessel appears to be angiographically normal distally bifurcates into PDA and PLV branches both appear to be angiographically normal Left main: Has mild disease only The left circumflex: Large-caliber vessel nondominant vessel with no evidence of high-grade stenosis identified The left anterior descending artery: Large-caliber vessel appears to be angiographically normal and gives as into multiple diagonal branches are normal HEMODYNAMICS: LVEDP was 21 mmHg with no significant gradient across aortic valve CONCLUSION: 1. Mild CAD involving the left main 2. Elevated left-sided filling pressure POSTPROCEDURE MANAGEMENT: Medical treatment
[2024-06-04 06:22] LABS: Glucose,Whole Blood 123 mg/dL (70-110)
[2024-06-04] MEDS: IOPAMIDOL-370 100ML BTL INJ ONE (06:23)
[2024-06-04] MEDS: SODIUM CHLORIDE 0.9% 1,000 ML IV SCH (06:26)
--- NOTE | 2024-06-04 06:26 | P.PN ---
Progress Note - Text Final diagnosis Myopericarditis with ECG changes of ST elevation which are diffuse and abnormal troponins Continue telemetry monitoring THIS IS NOT AN ACUTE NH
[2024-06-04] MEDS ORDERED: MORPHINE SULFATE 4 MG/ML SYRINGE IVP PRN (08:00)
[2024-06-04] MEDS: ATORVASTATIN 40 MG TAB PO SCH (08:14)
[2024-06-04] MEDS: ACETAMINOPHEN TAB 325 MG TAB PO PRN (08:14)
[2024-06-04] MEDS: FAMOTIDINE 20 MG TAB PO SCH ×2 (08:14→08:51)
[2024-06-04] MEDS: INDOMETHACIN 25 MG CAP PO SCH (08:15)
--- NOTE | 2024-06-04 08:55 | P.HPIM ---
History of Present Illness H&P Date: 06/04/24 Patient is a 39-year-old male with history of hypertension, dyslipidemia, depression presenting with persistent left shoulder and arm pain. He claims that about 1 week ago he started have cough, and was recently diagnosed with bronchitis and was given a Z-Adam. Yesterday he started noticing some sharp left shoulder pain as well as left arm pit. He claims that it was on and off, and progressively worsened, and this morning he started having nausea, diaphoresis. His pain also radiated to the right shoulder as well as down to his back. Denies any significant chest pain or abdominal pain. No fevers or urinary or bowel complaints. His father had TN in his 30s. After talking to his father, he decided to come to the hospital. He denies any smoking, minimal alcohol use, denies any illicit drug use. On arrival, temperature was 97.8, pulse 69, respiratory rate 20, blood pressure 146/87, saturating 100% on room air. Chest x-ray independently interpreted independently interpreted, shows shows bilateral interstitial opacities more significant in left lower lobe as well as right middle lobe. EKG diffuse ST elevations, primarily in inferior, septal and lateral leads. Initial laboratory workup showed WBC 7.4, hemoglobin 15.5, sodium 137, potassium 4.1, creatinine 0.72, troponin 3.01, proBNP 332, magnesium 2. Patient was taken directly to cardiac cath, which showed mild CAD involving the left main, elevated left-sided filling pressures. Patient currently in medical ICU for further observation and workup. Pertinent positives and negatives as discussed in HPI, a complete review of systems was performed and all other systems are negative. Patient seen and examined at bedside. Vital signs reviewed General: nontoxic, no distress, appears at stated age Derm: warm, dry Head: atraumatic, normocephalic, symmetric Eyes: EOMI, no lid lag, anicteric sclera, pupils equal round reactive to light ENT: Nose and ears atraumatic Neck: No thyromegaly, supple Mouth: no lip lesion, mucus membranes moist Cardiovascular: S1S2 reg, no murmur, no edema Lungs: clear to auscultation bilateral, no rhonchi, no rales, no wheeze, no accessory muscle use Abdominal: soft, nontender to palpation, no guarding, no appreciable organomegaly Ext: no gross muscle atrophy, muscle strength muscle strength 5 out of 5 in all 4 extremities, no contractures Neuro: CN II-XII grossly intact Psych: Alert, oriented, appropriate affect Assessment/Plan: Active: Acute myopericarditis Nonobstructive CAD History of hypertension Dyslipidemia -Cardiology note reviewed, patient on colchicine 0.6 mg daily, indomethacin 25 mg twice daily -Continue atorvastatin 40 mg daily, started on aspirin 81 mg daily -Likely secondary to viral process -Viral panel is pending -Continue to trend troponin -Continue telemetry monitoring -Echocardiogram pending -Pain control with oral Tylenol as needed, oral Moncure as needed, IV morphine as needed, monitor for sedation Bilateral multifocal pneumonia -Likely viral -No concern for systemic infection, hold off antibiotics -Procalcitonin ordered -Sputum cultures, blood cultures, Legionella, mycoplasma ordered Chronic: Depression The patient is admitted with an anticipated greater than 2 midnight stay as inpatient status for evaluation of myopericarditis. Surrogate decision-maker: Spouse CODE STATUS: Full code DVT prophylaxis: Subcu heparin Anticipated discharge date: Pending clinical course Anticipated discharge place: Pending clinical course A total of 65 minutes was spent on the care of this complex patient more than 50% of the time was spent in counseling and care coordination. Past Medical History Past Medical History: Asthma, Hypertension History of Any Multi-Drug Resistant Organisms: None Reported Past Surgical History: No Surgical Hx Reported Additional Past Surgical History / Comment(s): wisdom teeth, Past Psychological History: Anxiety, Depression Past Alcohol Use History: Occasional Past Drug Use History: None Reported Medications and Allergies Home Medications Medication Instructions Recorded Confirmed Type Albuterol Inhaler [Ventolin Hfa 1 - 2 puff INHALATION RT-Q6H PRN 07/21/14 04/02/17 History Inhaler] Albuterol Nebulized [Ventolin 2.5 mg INHALATION RT-Q6H PRN 04/02/17 04/02/17 History Nebulized] Hydrocortisone Cream 1 applic TOPICAL TID PRN 04/02/17 04/02/17 History [Hydrocortisone 1% Cream] Multivitamins, Thera [Multivitamin 1 tab PO DAILY 04/02/17 04/02/17 History (formulary)] PARoxetine HCL [Paxil] 15 mg PO DAILY 04/02/17 04/02/17 History Allergies Allergy/AdvReac Type Severity Reaction Status Date / Time No Known Allergies Allergy Verified 06/04/24 04:36 Physical Exam Vitals: Vital Signs Temp Pulse Resp BP Pulse Ox 06/04/24 08:45 68 11 L 110/76 96 06/04/24 08:30 66 9 L 124/57 96 06/04/24 08:15 73 11 L 127/72 97 06/04/24 08:00 77 14 110/78 96 06/04/24 07:45 70 15 117/62 96 06/04/24 07:30 75 12 112/74 96 06/04/24 07:15 71 15 129/89 95 06/04/24 07:00 102 H 128/73 94 L 06/04/24 06:45 81 20 125/74 95 06/04/24 06:30 86 128/73 95 06/04/24 05:30 93 18 132/75 97 06/04/24 05:12 98 18 144/91 97 06/04/24 04:50 101 H 18 144/97 97 06/04/24 04:32 97.8 F 69 20 146/87 100 Intake and Output 06/03/24 06/04/24 06/04/24 22:59 06:59 14:59 Intake Total 100 Balance 100 Intake: IV 100 Other: Weight 136.078 kg Results CBC & Chem 7: 06/04/24 04:57 06/04/24 04:57 Labs: Abnormal Lab Results - Last 24 Hours (Table) 06/04/24 06/04/24 06/04/24 Range/Units 04:57 04:57 06:20 Glucose 118 H (74-99) mg/dL POC Glucose (mg/dL) 123 H (70-110) mg/dL Troponin I 3.010 H* (0.000-0.034) ng/mL
[2024-06-04] MEDS: HYDROcodone/APAP 5-325MG 1 EACH TAB PO PRN (09:51)
[2024-06-04] MEDS: COLCHICINE 0.6 MG EACH PO SCH (10:12)
[2024-06-04] MEDS: PARoxetine 10 MG TAB PO SCH ×2 (10:13→15:41)
--- NOTE | 2024-06-04 11:33 | CA ---
Transthoracic Echo Report Name: Merrill Khanna Age: 39 Gender: M : 1985 Exam Date: 06/04/2024 07:51 Exam Location: [facility] Ht (in): 69 Wt (lb): 200 Ordering Physician: Benigno Hsieh MD ([id number]) Attending/Referring Phys: Loop Drier Operator Ashley Dowell RDCS Procedure CPT: Indications: stemi Cardiac Hx: Technical Quality: Good Contrast 1: Total Dose (mL): Contrast 2: Total Dose (mL): MEASUREMENTS (Male / Female) Normal Values 2D ECHO LV Diastolic Diameter PLAX 4.4 cm 4.2 - 5.9 / 3.9 - 5.3 cm LV Systolic Diameter PLAX 3.0 cm IVS Diastolic Thickness 1.2 cm 0.6 - 1.0 / 0.6 - 0.9 cm LVPW Diastolic Thickness 1.2 cm 0.6 - 1.0 / 0.6 - 0.9 cm LV Relative Wall Thickness 0.6 RV Internal Dim ED PLAX 2.4 cm LA Systolic Diameter LX 3.4 cm 3.0 - 4.0 / 2.7 - 3.8 cm LV Diastolic Volume MOD BP 84.8 cm??? 67 - 155 / 56 - 104 cm??? LV Systolic Volume MOD BP 44.3 cm??? 22 - 58 / 19 - 49 cm??? LV Ejection Fraction MOD BP 47.8 % >= 55 % LV Cardiac Index MOD BP 1393.1 cm???/min???m??? LV Diastolic Volume MOD 4C 87.5 cm??? LV Systolic Volume MOD 4C 46.2 cm??? LV Ejection Fraction MOD 4C 47.2 % LV Cardiac Index MOD 4C 1420.1 cm???/min???m??? LV Diastolic Length 4C 8.4 cm LV Systolic Length 4C 6.8 cm LV Diastolic Volume MOD 2C 83.0 cm??? LV Systolic Volume MOD 2C 40.3 cm??? LV Ejection Fraction MOD 2C 51.4 % LV Cardiac Index MOD 2C 1464.3 cm???/min???m??? LV Diastolic Length 2C 8.4 cm LV Systolic Length 2C 7.3 cm LA Volume 39.7 cm??? 18 - 58 / 22 - 52 cm??? LA Volume Index 18.7 cm???/m??? 16 - 28 cm???/m??? M-MODE Aortic Root Diameter MM 3.2 cm LA Systolic Diameter MM 3.4 cm LA Ao Ratio MM 1.1 AV Cusp Separation MM 2.0 cm DOPPLER LVOT Peak Velocity 109.9 cm/s LVOT Peak Gradient 4.8 mmHg LVOT Velocity Time Integral 22.3 cm MV Area PHT 3.6 cm??? Mitral E Point Velocity 81.0 cm/s Mitral A Point Velocity 54.0 cm/s Mitral E to A Ratio 1.5 MV Deceleration Time 208.4 ms TR Peak Velocity 199.2 cm/s TR Peak Gradient 15.9 mmHg FINDINGS Left Ventricle Left ventricular ejection fraction is estimated at 45-50% .Mildly increased septal wall thickness. Mildly decreased left ventricular ejection fraction. Left ventricular cavity size normal. Inferior wall is hypokinetic suggestive of prior myocardial infarction Right Ventricle Normal right ventricular size and function. Right ventricular systolic pressure within normal limits. Right Atrium Normal right atrial size. Left Atrium Normal left atrial size. Mitral Valve Structurally normal mitral valve. Trace mitral regurgitation. No mitral stenosis. Aortic Valve Trileaflet aortic valve. Trace aortic regurgitation. No aortic stenosis. Tricuspid Valve Structurally normal tricuspid valve. Trace tricuspid regurgitation. Pulmonic Valve Structurally normal pulmonic valve. No pulmonic stenosis. Trace pulmonic regurgitation. Pericardium No pericardial or pleural effusion. Aorta Normal size aortic root and proximal ascending aorta. CONCLUSIONS Moderate LV systolic dysfunction with an ejection fraction of 45-50% Hypokinetic inferior wall suggestive of myocardial infarction Trace mitral regurgitation Previewed by: Dr. Yonatan Arteaga MD (Electronically Signed) Final Date: 04 June 2024 11:32
[2024-06-04] MEDS: HEPARIN SODIUM,PORCINE 5,000 UNIT/ML 1 ML VIAL SQ SCH (15:26)
[2024-06-04 16:21] LABS: Chol/HDL Ratio 4.35 Ratio; LDL Cholesterol,Calculated 57.8 mg/dL (0.0-131.0); VLDL Calculation 19.18 mg/dL (5.00-40.00)
[2024-06-05] MEDS: ASPIRIN 81 MG PO SCH (08:42)
[2024-06-05] MEDS ORDERED: PARoxetine 10 MG TAB PO SCH (09:00)
[2024-06-05 09:57] LABS: Basophils % (A) 1 %; Eosinophils # (A) 0.2 k/uL (0-0.7); Eosinophils % (A) 4 %; HCT 44.1 % (39.0-53.0); HGB 14.1 gm/dL (13.0-17.5); Lymphocytes # (A) 1.3 k/uL (1.0-4.8); Lymphocytes % (A) 26 %; MCH 29.6 pg (25.0-35.0); MCV 92.6 fL (80.0-100.0); Mean Platelet Volume 7.1; Monocytes # (A) 0.4 k/uL (0-1.0); Monocytes % (A) 8 %; Neutrophils # (A) 2.9 k/uL (1.3-7.7); Neutrophils % (A) 59 %; Platelet Count 239 k/uL (150-450); RBC 4.77 m/uL (4.30-5.90); RDW 12.5 % (11.5-15.5); WBC 4.8 k/uL (3.8-10.6)
[2024-06-05] MEDS: SACUBITRIL/VALSARTAN 24 MG-26 MG TABLET PO SCH (11:34)
[2024-06-05] MEDS: DAPAGLIFLOZIN PROPANEDIOL 10 MG TABLET PO SCH (11:34)
--- NOTE | 2024-06-05 12:35 | P.PN ---
Subjective Progress Note Date: 06/05/24 Hospital Course: 39-year-old male with history of hypertension, dyslipidemia, depression presen ting with persistent left shoulder and arm pain. On arrival, temperature was 97.8, pulse 69, respiratory rate 20, blood pressure 146/87, saturating 100% on room air. Chest x-ray independently interpreted independently interpreted, shows shows bilateral interstitial opacities more significant in left lower lobe as well as right middle lobe. EKG diffuse ST elevations, primarily in inferior, septal and lateral leads. Initial laboratory workup showed WBC 7.4, hemoglobin 15.5, sodium 137, potassium 4.1, creatinine 0.72, troponin 3.01, proBNP 332, magnesium 2. Patient was taken directly to cardiac cath, which showed mild CAD involving the left main, elevated left-sided filling pressures. Cardiology following, likely has myopericarditis. LVEF 45 to 50%. Subjective: Patient seen and examined at bedside. No acute events overnight. Was complaining of some floaters after taking his medications. Denies any vision loss. Pertinent positives and negatives as discussed above, a complete review of systems was performed and all other systems are negative. Vitals Signs Reviewed. General: Nontoxic, no distress, appears at stated age Derm: Warm, dry Head: Atraumatic, normocephalic, symmetric Eyes: EOMI, no lid lag, anicteric sclera, peripheral vision intact, no nystagmus Mouth: No lip lesion, mucus membranes moist Cardiovascular: S1S2 reg, no murmur Lungs: CTA bilateral, no rhonchi, no rales, no accessory muscle use Abdominal: Soft, nontender to palpation, no guarding, no appreciable organomegaly Ext: No gross muscle atrophy, no edema, no contractures Neuro: CN II-XI grossly intact, no focal neuro deficits Psych: Alert, oriented, appropriate affect Data Reviewed Today: Pertinent Labs: Hemoglobin 14.1, troponin peaked at 10.4 Imaging: Echocardiogram showed LVEF 45 to 50% Assessment and Plan: Patient is severely ill, needs close monitoring. Prognosis guarded. Active: Acute myopericarditis Nonobstructive CAD History of hypertension Dyslipidemia Nonischemic cardiomyopathy -Discussed management with cardiology, started on Farxiga 10 mg, Entresto half tab 2426 twice daily, patient on colchicine 0.6 mg daily, indomethacin 25 mg twice daily -Patient to be likely discharge tomorrow if stable on 1 week of scheduled ibuprofen and then as needed, 1 month of colchicine -Continue atorvastatin 40 mg daily and on aspirin 81 mg daily -Likely secondary to viral process -Continue telemetry monitoring -Pain control with oral Tylenol as needed, oral [place] as needed, IV morphine as needed, monitor for sedation -Patient will need outpatient ophthalmology follow-up Bilateral multifocal pneumonia -Likely viral -No concern for systemic infection, hold off antibiotics -Procalcitonin ordered -Sputum cultures, blood cultures, Legionella negative, mycoplasma pending Chronic: Depression DVT ppx: Subcu heparin Code status: Full code Anticipated discharge place: Home Anticipated discharge time: Tomorrow Objective - Vital Signs Vital signs: Vital Signs Temp 97.6 F 06/05/24 08:35 Pulse 71 06/05/24 11:31 Resp 16 06/05/24 11:31 BP 117/68 06/05/24 11:31 Pulse Ox 95 06/05/24 11:31 FiO2 Intake & Output 06/04/24 06/05/24 06/05/24 18:59 06:59 18:59 Intake Total 275 540 240 Output Total 625 600 Balance -350 -60 240 Weight 90.9 kg 92.6 kg Intake: Intake, IV Titration 75 Amount Sodium Chloride 0.9% 1, 75 000 ml @ 75 mls/hr IV . [id number] [facility] Rx#:[id number] Oral 200 540 240 Output: Urine 625 600 Other: Voiding Method Urinal Urinal Toilet # Voids 1 - Labs CBC & Chem 7: 06/05/24 09:15 06/04/24 04:57 Labs: Abnormal Lab Results - Last 24 Hours (Table) 06/04/24 06/04/24 Range/Units 10:35 16:16 Troponin I 7.180 H* (0.000-0.034) ng/mL HDL Cholesterol 23.00 L (40.00-60.00) mg/dL
[2024-06-05] MEDS ORDERED: METOPROLOL SUCCINATE (ER) 25 MG TAB.ER.24H PO SCH (14:15)
--- NOTE | 2024-06-05 14:17 | P.CRDCN ---
History of Present Illness Consult date: 06/05/24 History of present illness: SUBJECTIVE: June 04 the patient got admitted to the hospital with concerns of acute ST segment elevated or infarction. He had a heart catheterization done which showed minimal luminal irregularities in coronary arteries specially left main with no obstructive coronary artery disease. He had significant troponin elevation and he has been treated for myopericarditis. PHYSICAL EXAMINATION Vital signs reviewed. Head: Normocephalic. Eyes: Sclerae nonicteric. Neck: Brisk carotid upstroke, no jugular venous distention. Lungs: Clear to auscultation. Heart: Regular rate and rhythm, S1-S2, no S3, no murmur or rub. Abdomen: Soft nontender, bowel sounds present, Extremities: No edema, Neuro: Alert, oriented, no focal neurological deficits. Detailed neuro exam was not performed. ASSESSMENT Myopericarditis Mild cardiomyopathy PLAN Obtain ESR and CRP levels Farxiga 10 mg daily, Entresto half tablet 24/ 26 mg twice daily for 1 month Colchicine 0.6 mg for 3 months Indomethacin Protonix 40 mg AC breakfast during the course of indomethacin and colchicine use. He was recommended not to be on beta-halley while primary deputy administrator therefore will not prescribe him one. Your blood pressure and heart rate is okay, cleared to be discharged from cardiac standpoint. Jose C Gale MD, FACC, RPVI Thank you for allowing [facility] to participate in this patient's care. Please contact us in case of any followup questions. Past Medical History Past Medical History: Asthma, Hypertension History of Any Multi-Drug Resistant Organisms: None Reported Past Surgical History: No Surgical Hx Reported Additional Past Surgical History / Comment(s): wisdom teeth, Past Psychological History: Anxiety, Depression Past Alcohol Use History: Occasional Past Drug Use History: None Reported Medications and Allergies Home Medications Medication Instructions Recorded Confirmed Type PARoxetine HCL [Paxil] 30 mg PO DAILY 04/02/17 06/04/24 History Azithromycin [Zithromax Z Pack] See Taper PO DAILY 06/04/24 06/04/24 History Metoprolol Succinate (ER) [Toprol 12.5 mg PO HS 06/04/24 06/04/24 History Xl] Promethazine/Dextromethorphan 5 ml PO Q6H PRN 06/04/24 06/04/24 History [Phenergan Dm 6.25-15 mg/5Ml] Rosuvastatin Calcium [Crestor] 5 mg PO DAILY 06/04/24 06/04/24 History Allergies Allergy/AdvReac Type Severity Reaction Status Date / Time No Known Allergies Allergy Verified 06/04/24 09:03 Physical Exam Vitals: Vital Signs Temp Pulse Pulse Resp BP Pulse Ox 06/05/24 13:12 71 06/05/24 11:31 71 16 117/68 95 06/05/24 10:14 114/72 06/05/24 08:35 97.6 F 69 16 121/76 93 L 06/05/24 04:00 97.8 F 61 14 117/77 96 06/05/24 00:00 97.4 F L 85 12 107/73 95 06/04/24 20:00 97.4 F L 71 14 108/68 97 06/04/24 15:38 97.9 F 64 20 101/68 97 Intake and Output 06/04/24 06/05/24 06/05/24 22:59 06:59 14:59 Intake Total 540 240 Output Total 600 Balance -60 240 Intake: Oral 540 240 Output: Urine 600 Other: Voiding Method Urinal Urinal Toilet # Voids 1 Weight 92.6 kg Results 06/05/24 09:15 06/04/24 04:57 Cardiac Enzymes 06/04/24 Range/Units 16:16 Troponin I 7.180 H* (0.000-0.034) ng/mL Lipids 06/04/24 Range/Units 10:35 Triglycerides 95.90 (0.00-149.00) mg/dL Cholesterol 100.00 (0.00-200.00) mg/dL HDL Cholesterol 23.00 L (40.00-60.00) mg/dL Cholesterol/HDL Ratio 4.35 Ratio CBC 06/05/24 Range/Units 09:15 WBC 4.8 (3.8-10.6) k/uL RBC 4.77 (4.30-5.90) m/uL Hgb 14.1 (13.0-17.5) gm/dL Hct 44.1 (39.0-53.0) % Plt Count 239 (150-450) k/uL Current Medications Generic Name Dose Route Start Last Admin Trade Name Freq PRN Reason Stop Dose Admin Acetaminophen 650 mg 06/04/24 08:00 06/04/24 08:14 Acetaminophen Tab 325 Mg Tab PO 650 mg Q6HR PRN Administration Fever and/or Mild Pain 1-3 Hydrocodone Bitart/Acetaminophen 1 each 06/04/24 08:00 06/05/24 10:05 Hydrocodone/Apap 5-325mg 1 Each Tab PO 1 each Q6HR PRN Administration Moderate to Severe Pain (4-10) Aspirin 81 mg 06/05/24 09:00 06/05/24 08:42 Aspirin 81 Mg PO 81 mg DAILY PETE Administration Atorvastatin Calcium 40 mg 06/04/24 09:00 06/05/24 08:43 Atorvastatin 40 Mg Tab PO 40 mg DAILY PETE Administration Colchicine 0.6 mg 06/04/24 09:00 06/05/24 08:43 Colchicine 0.6 Mg Each PO 0.6 mg DAILY PETE Administration Dapagliflozin 10 mg 06/05/24 11:00 06/05/24 11:34 Dapagliflozin Propanediol 10 Mg Tablet PO 10 mg DAILY PETE Administration Heparin Sodium (Porcine) 5,000 unit 06/04/24 16:00 06/05/24 08:43 Heparin Sodium,Porcine 5,000 Unit/Ml 1 Ml Vial SQ 5,000 unit Q8HR PETE Administration Indomethacin 25 mg 06/04/24 09:00 06/05/24 08:42 Indomethacin 25 Mg Cap PO 25 mg BID PETE Administration Miscellaneous Information 1 each 06/04/24 06:05 Rx Info: Iv Contrast Was Given 1 Each Misc MISCELLANE 06/06/24 06:05 DAILY PRN Per Protocol Morphine Sulfate 4 mg 06/04/24 08:00 Morphine Sulfate 4 Mg/Ml Syringe IVP Q6HR PRN Severe Breakthrough Pain Naloxone HCl 0.2 mg 06/04/24 05:52 Naloxone 0.4 Mg/Ml 1 Ml Vial IV Q2M PRN Opioid Reversal Pantoprazole Sodium 40 mg 06/06/24 07:30 Pantoprazole 40 Mg Tablet PO AC-BRKFST PETE Paroxetine HCl 30 mg 06/04/24 10:00 06/05/24 08:43 Paroxetine 10 Mg Tab PO 30 mg DAILY PETE Administration Sacubitril/Valsartan 0.5 each 06/05/24 11:00 06/05/24 11:34 Sacubitril/Valsartan 24 Mg-26 Mg Tablet PO 0.5 each BID PETE Administration Intake and Output 06/04/24 06/05/24 06/05/24 22:59 06:59 14:59 Intake Total 540 240 Output Total 600 Balance -60 240 Intake: Oral 540 240 Output: Urine 600 Other: Voiding Method Urinal Urinal Toilet # Voids 1 Weight 92.6 kg 06/05/24 09:15 06/04/24 04:57
[2024-06-06 03:40] VITALS: TEMP 98
[2024-06-06] MEDS: PANTOPRAZOLE 40 MG TABLET PO SCH (06:10)
[2024-06-06 08:39] VITALS: BP 116/69; PULSE 67; RESP 16
[2024-06-06 09:26] LABS: African American GFR (CKD) >90 (>60 ml/min/1.73 sqM); Anion Gap 5 mmol/L; Blood Urea Nitrogen 13 mg/dL (9-20); Calcium 9.2 mg/dL (8.4-10.2); Carbon Dioxide 35 mmol/L (22-30); Chloride 100 mmol/L (98-107); Glucose 86 mg/dL (74-99); Non-African American GFR(CKD) >90 (>60 ml/min/1.73 sqM); Potassium 4.6 mmol/L (3.5-5.1); Sodium 140 mmol/L (137-145)
--- NOTE | 2024-06-06 12:00 | P.DS ---
Providers Date of admission: 06/04/24 05:52 Expected date of discharge: 06/06/24 Attending physician: Heather Soto MD Consults: 06/04/24 05:48 Consult Physician Stat Consulting Provider: Mateo Corcoran Consult Reason/Comments: ami Do you want consulting provider notified?: Already Contacted Primary care physician: Demar Combs [place] Hospital Course: Discharge Diagnosis: Acute myopericarditis Nonobstructive CAD History of hypertension Dyslipidemia Nonischemic cardiomyopathy Bilateral multifocal pneumonia Hospital Course: 39-year-old male with history of hypertension, dyslipidemia, depression presenting with persistent left shoulder and arm pain. On arrival, temperature was 97.8, pulse 69, respiratory rate 20, blood pressure 146/87, saturating 100% on room air. Chest x-ray independently interpreted independently interpreted, shows shows bilateral interstitial opacities more significant in left lower lobe as well as right middle lobe. EKG diffuse ST elevations, primarily in inferior, septal and lateral leads. Initial laboratory workup showed WBC 7.4, hemoglobin 15.5, sodium 137, potassium 4.1, creatinine 0.72, troponin 3.01, proBNP 332, magnesium 2. Patient was taken directly to cardiac cath, which showed mild CAD involving the left main, elevated left-sided filling pressures. Cardiology following, likely has myopericarditis. LVEF 45 to 50%. Patient started on guideline directed medical therapy for systolic heart failure, outpatient follow-up with cardiology and PCP. Patient seen and examined at bedside. Vital signs reviewed and stable. General: Nontoxic, no distress, appears at stated age Derm: Warm, dry Head: Atraumatic, normocephalic, symmetric Eyes: EOMI, no lid lag, anicteric sclera Mouth: No lip lesion, mucus membranes moist Cardiovascular: S1S2 reg, no murmur Lungs: CTA bilateral, no rhonchi, no rales, no accessory muscle use Abdominal: Soft, nontender to palpation, no guarding, no appreciable organomegaly Ext: No gross muscle atrophy, no edema, no contractures Neuro: CN II-XI grossly intact, no focal neuro deficits Psych: Alert, oriented, appropriate affect A total of 36 minutes of time were spent preparing this complex discharge summary. Patient was discharged on 06/06/2024 at 1140. Patient Condition at Discharge: Stable Plan - Discharge Summary Discharge Rx Participant: Yes New Discharge Prescriptions: New Dapagliflozin Propanediol [Farxiga] 10 mg PO DAILY #90 tab Aspirin 81 mg PO DAILY #90 tab Colchicine [Colcrys] 0.6 mg PO DAILY #30 each Sacubitril/Valsartan [Entresto 24 mg-26 mg Tablet] 0.5 each PO BID #90 tab Ibuprofen 600 mg PO Q8H #30 tab Atorvastatin [Lipitor] 40 mg PO DAILY #90 tab Pantoprazole [Protonix] 40 mg PO AC-BRKFST #90 tab Continue PARoxetine HCL [Paxil] 30 mg PO DAILY Metoprolol Succinate (ER) [Toprol XL] 12.5 mg PO HS Discontinued Rosuvastatin Calcium [Crestor] 5 mg PO DAILY Promethazine/Dextromethorphan [Phenergan Dm 6.25-15 mg/5Ml] 5 ml PO Q6H PRN PRN Reason: Cough Azithromycin [Zithromax Z Pack] See Taper PO DAILY Discharge Medication List PARoxetine HCL [Paxil] 30 mg PO DAILY 04/02/17 [History] Metoprolol Succinate (ER) [Toprol XL] 12.5 mg PO HS 06/04/24 [History] Aspirin 81 mg PO DAILY #90 tab 06/06/24 [Rx] Atorvastatin [Lipitor] 40 mg PO DAILY #90 tab 06/06/24 [Rx] Colchicine [Colcrys] 0.6 mg PO DAILY #30 each 06/06/24 [Rx] Dapagliflozin Propanediol [Farxiga] 10 mg PO DAILY #90 tab 06/06/24 [Rx] Ibuprofen 600 mg PO Q8H #30 tab 06/06/24 [Rx] Pantoprazole [Protonix] 40 mg PO AC-BRKFST #90 tab 06/06/24 [Rx] Sacubitril/Valsartan [Entresto 24 mg-26 mg Tablet] 0.5 each PO BID #90 tab 06/06/24 [Rx] Follow up Appointment(s)/Referral(s): Mateo Corcoran MD [STAFF PHYSICIAN] - 1 Week (Please call Friday to schedule follow up appoitment) Demar Combs MD [Primary Care Provider] - 1-2 days (Please call Friday to schedule follow up appoitment) Patient Instructions/Handouts: Heart Failure (DC) Activity/Diet/Wound Care/Special Instructions: Please see your PCP and catheter builder. Also see ophthalmology. Discharge Disposition: HOME SELF-CARE
[2024-06-08 04:58] LABS: Parvovirus B-19 IgG Antibodies 4.63 INDEX (<=0.90); Parvovirus B-19 IgM Antibodies 0.24 INDEX (<=0.90)
== END 2024-06-06 12:33 | disposition home or self-care (01) | DRG 286 ==
LOC: EC 04:31 → 2SICU 05:52 → 3SCARD 15:07
PROVIDERS: ADMIT Internal Medicine; ATTEND Internal Medicine
PROC: B2111ZZ Fluoroscopy of Multiple Coronary Arteries using Low Osmolar Contrast (ICD-10-PCS; 2024-06-04)
PROC: 4A023N7 Measurement of Cardiac Sampling and Pressure, Left Heart, Percutaneous Approach (ICD-10-PCS; principal; 2024-06-04 05:25)
DX: I30.9 Acute pericarditis, unspecified (principal); J12.9 Viral pneumonia, unspecified; I42.8 Other cardiomyopathies; I50.20 Unspecified systolic (congestive) heart failure; I25.10 Atherosclerotic heart disease of native coronary artery without angina pectoris; E78.5 Hyperlipidemia, unspecified; F32.A Depression, unspecified; J45.909 Unspecified asthma, uncomplicated; I11.0 Hypertensive heart disease with heart failure; Z82.49 Family history of ischemic heart disease and other diseases of the circulatory system; Z79.899 Other long term (current) drug therapy
CPT/HCPCS: 36415; 71045; 80048; 80053; 80061; 83735; 83880; 84484; 85025; 85652; 86140; 86658; 86738; 86747; 87040; 87449; 87636; 93005; 93306; 93458; 96374; 96375; 99291